=== PATIENT | male | born 1970 | race Caucasian/White ===

== ENCOUNTER 2022-02-14 14:25 | Outpatient (CLI) | payer OTHER, SELFPAY ==
--- NOTE | 2022-02-14 15:00 | CRLHL7_ITS ---
For Patients: As a result of the Century Cures Act, medical imaging exams and procedure reports are released immediately into your electronic medical record. You may view this report before your referring provider. If you have questions, please contact your health care provider. INDICATION: CIRRHOSIS OF LIVER COMPARISON: 06/09/2021 TECHNIQUE: Real time marcum scale imaging and color Doppler analysis was performed of the right upper quadrant. FINDINGS: The patient`s liver is enlarged and diffusely coarsened heterogeneous which has increased in conspicuity compared to the prior exam. There is a normal appearance of the hepatic IVC and proximal abdominal aorta. There is no evidence of ascites. The gallbladder is of normal size and there is no evidence of intraluminal stones or sludge. The gallbladder wall measures 5 mm in thickness. The common bile duct is of normal size and measures 3 mm in diameter at the level of the guilherme hepatis. The visualized pancreas appears mildly heterogeneous. There is no evidence of a stone or hydronephrosis within the right kidney. The right kidney measures 11.3 cm in length. IMPRESSION: Hepatomegaly with diffuse heterogeneity suggesting regenerating nodules. This has progressed since the prior study. Dynamic MRI is suggested for further evaluation. Chronic mild thickening of the gallbladder wall related to chronic liver disease. Dictated by Yossi Marin MD @ 02/14/2022 3:43:33 PM (Electronically Signed)
== END 2022-02-14 14:26 | disposition home or self-care (01) ==
LOC: US 14:25
PROVIDERS: PCP Family Medicine; Visit Provider Internal Medicine Gastroenterology
DX: K74.60 Unspecified cirrhosis of liver (principal); R16.0 Hepatomegaly, not elsewhere classified
CPT/HCPCS: 76705

== ENCOUNTER 2022-03-07 14:59 | Outpatient (CLI) | payer OTHER, SELFPAY ==
--- NOTE | 2022-03-07 15:30 | CRLHL7_ITS ---
For Patients: As a result of the Century Cures Act, medical imaging exams and procedure reports are released immediately into your electronic medical record. You may view this report before your referring provider. If you have questions, please contact your health care provider. Indication: Abnormal ultrasound findings. Comparison: Abdominal ultrasound 02/14/2022; CT abdomen and pelvis 12/16/2018; CT chest, abdomen, and pelvis 04/03/2021 Technique: MRI of the abdomen was performed with the following sequences: axial and coronal T2 weighted, axial T2 fat saturated, axial diffusion, axial T1 in and out of phase, axial and coronal 3D T1 weighted before and after intravenous contrast administration. Contrast: 15 mL Dotarem Findings: Liver: Hepatomegaly with marked severe diffuse steatosis. Liver demonstrates progressive nodularity, consistent with cirrhosis. Sub adequate arterial phase examination limits evaluation. No suspicious enhancing observations or washout. Portal hypertension with recanalized paraumbilical vein and splenomegaly. Gallbladder: Unremarkable. Biliary system: No biliary distention, filling defect, mass or stricture. Pancreas: Normal caliber main pancreatic duct.No discrete pancreatic lesions. Other abdominal organs: Left renal cortical cyst. Adrenal glands grossly unremarkable. Bone marrow signal: Normal Other findings: No lymphadenopathy or ascites Impression: 1. Cirrhotic liver morphology with marked severe diffuse steatosis. Portal hypertension with recanalized paraumbilical vein and splenomegaly. 2. No gross evidence of HCC. Dictated by Brando Munoz MD @ 03/11/2022 2:35:29 PM (Electronically Signed)
== END 2022-03-07 15:00 | disposition home or self-care (01) ==
LOC: MRI 15:00
PROVIDERS: PCP Family Medicine; Visit Provider Internal Medicine Gastroenterology
DX: R93.2 Abnormal findings on diagnostic imaging of liver and biliary tract (principal); K76.0 Fatty (change of) liver, not elsewhere classified
CPT/HCPCS: 74183; A9575

== ENCOUNTER 2022-09-05 17:35 | Outpatient (CLI) | payer MEDICAID, SELFPAY | END 2022-09-05 17:36 | disposition home or self-care (01) | LOC: AMB 09-06 12:47 | PROVIDERS: PCP Family Medicine; Visit Provider Family Medicine | DX: R06.09 Other forms of dyspnea (principal) | CPT/HCPCS: A0425; A0427 ==

== ENCOUNTER 2022-09-05 18:00 | Inpatient (IN) | payer MEDICAID, SELFPAY ==
[2022-09-05] VITALS (37 sets, daily range): BP systolic 98–174; BP diastolic 68–146; PULSE 107–163; RESP 22–30; TEMP 36.4–37.2; O2SAT 83–98; BMI 40.4; BMI 41.3
[2022-09-05] MEDS: 0.9 % SODIUM CHLORIDE 1000 ml 1,000 ML IV (18:21)
--- NOTE | 2022-09-05 18:26 | ED_ITS ---
HPI - General Adult General Time Seen by Provider: 18:26 Date Seen: 09/05/22 Chief complaint: Alcohol/Intoxication Stated complaint: Withdrawals Time Seen by Provider: 09/05/22 18:12 Source: patient Mode of arrival: EMS History of Present Illness HPI narrative: Rachid is a 52-year-old male past medical history includes alcohol abuse, complicated with alcohol withdrawals, asthma, hypertension, acute respiratory failure in the setting of pulmonary edema presents emergency department via EMS from home with alcohol withdrawals. Patient states that his last drink was last night around midnight or 1:00 a.m., he has been drinking 1 L of Tequila daily over the last 6 months, last time he saw his primary Dr. Colon was last July, patient denies any history of any withdrawal seizures, patient denies any nausea vomiting, he feels that his breathing has worsened over the last 6 months as well, he has also had increased abdominal distension with his ascites, patient does not smoke cigarettes, denies any orthopnea, he gets more exertional short of breath, he has had lower extremity edema. Denies any chest pain or cough, no fevers or chills, patient states that he has been eating, he has had ongoing diarrhea but denies any blood in the stool, no hemoptysis or hematemesis. Patient denies any pain at this time. Patient has been hospitalized for withdrawals in the past. No other drug use. Related Data Previous Rx's Medication Instructions Recorded folic acid 1 mg tablet 1 mg PO QDAY #90 tabs 05/30/22 furosemide 20 mg tablet 20 mg PO QDAY #90 tabs 05/30/22 magnesium oxide 400 mg (2 x 200 mg magnesium) PO 05/30/22 QDAY #90 tabs metoprolol succinate 100 mg 100 mg PO QDAY #90 ea 05/30/22 capsule sprinkle, ext. release 24 hr multivitamin 1 tab PO QDAY #90 tabs 05/30/22 omeprazole 40 mg capsule,delayed 40 mg PO QDAY #90 caps 05/30/22 release ferrous sulfate 325 mg (65 mg 325 mg PO QDAY #90 tabs 07/02/22 iron) tablet Allergies Allergy/AdvReac Type Severity Reaction Status Date / Time tree nut Allergy Severe Anaphylaxis Verified 08/23/21 12:13 ondansetron Allergy Unknown Hives Verified 08/23/21 12:13 Review of Systems Status of ROS: Reports: 10 or more systems reviewed and unremarkable except as noted in History and below PFSH [facility] Medical History GERD (gastroesophageal reflux disease) ?K21.9 - Gastro-esophageal reflux disease without esophagitis (ICD-10) Social History Narrative: alcohol abuse Smoking Status: Never smoker How often do you have a drink containing alcohol: 4 or more times a week How many standard drinks containing alcohol do you have on a typical day: 10 or more How often do you have six or more drinks on one occasion: Daily or almost daily AUDIT-C Alcohol total score: 12 Non-prescribed substance use: denies use service: No Exam Narrative: Exam Narrative: General: Nontoxic in appearance, disheveled HEENT: Pupils equal round reactive to light, extraocular muscles intact, Oropharynx clear and moist Neck; supple, full range of motion Lungs: Clear to auscultation bilaterally Heart: Sinus tachycardia Abdomen: Distended, fluid wave present, he is nontender to palpation all 4 quadrants Muscle skeletal: Continuous upper and lower extremity tremors, especially with movement + 2 pitting edema lower extremities bila terally : Neuro: Alert awake and oriented x3, unable to evaluate gait due to u nsteadiness Const: Vital Signs, click to edit/add: Vital Signs - 24 hr 09/05/22 18:10 09/05/22 18:23 09/05/22 18:30 Temperature 99.0 F Pulse Rate 121 H 128 H Pulse Rate [Right Pulse Oximeter] 117 H Respiratory Rate 22 Blood Pressure Blood Pressure [Ri ght Upper Arm] 146/110 H Pulse Oximetry 95 95 96 Oxygen Delivery Me thod Room Air 09/05/22 18:35 09/05/22 18:45 09/05/22 18:47 Temperature Pulse Rate 120 H 159 H 108 H Pulse Rate [Right Pulse Oximeter] Respiratory Rate Blood Pressure 102/68 Blood Pressure [Ri ght Upper Arm] Pulse Oximetry 96 93 83 L Oxygen Delivery Me thod 09/05/22 19:00 09/05/22 19:02 09/05/22 19:15 Temperature Pulse Rate 154 H 151 H 159 H Pulse Rate [Right Pulse Oximeter] Respiratory Rate Blood Pressure 166/129 H Blood Pressure [Ri ght Upper Arm] Pulse Oximetry 97 98 98 Oxygen Delivery Me thod 09/05/22 19:18 09/05/22 19:21 09/05/22 19:31 Temperature Pulse Rate 163 H 130 H Pulse Rate [Right Pulse Oximeter] Respiratory Rate Blood Pressure 127/78 Blood Pressure [Ri ght Upper Arm] Pulse Oximetry 98 89 Oxygen Delivery Me thod 09/05/22 19:33 09/05/22 19:39 09/05/22 19:44 Temperature Pulse Rate 128 H 155 H 116 H Pulse Rate [Right Pulse Oximeter] Respiratory Rate Blood Pressure 135/101 H 131/97 H 143/86 H Blood Pressure [Ri ght Upper Arm] Pulse Oximetry 87 L 95 95 Oxygen Delivery Me thod 09/05/22 19:45 09/05/22 19:48 09/05/22 20:00 Temperature Pulse Rate 116 H 115 H 128 H Pulse Rate [Right Pulse Oximeter] Respiratory Rate Blood Pressure 174/105 H Blood Pressure [Ri ght Upper Arm] Pulse Oximetry 97 97 96 Oxygen Delivery Me thod 09/05/22 20:02 09/05/22 20:18 09/05/22 20:19 Temperature Pulse Rate 107 H 143 H 135 H Pulse Rate [Right Pulse Oximeter] Respiratory Rate Blood Pressure 124/108 H 130/102 H Blood Pressure [Ri ght Upper Arm] Pulse Oximetry 95 97 96 Oxygen Delivery Me thod Course Course Hospital Course: 6:30 PM: AIDET performed, vitals show tachycardia, blood pressure stable, O2 sats greater than 95% on room air, workup will include IV peripheral, 0.9 normal saline bolus 500 cc due to history of pulmonary edema, 5 mg IV Valium, will obtain EKG, CBC, serum ETOH, NT proBNP, CMP, lipase, magnesium, urine drug screen and XR chest two views. CIWA score of 10. Will place O2, 2 L per nasal cannula for comfort. Differential diagnosis considered life-threatening of meningitis, bacteremia, subdural, CVA, subarachnoid hemorrhage, hypertensive encephalopathy, other considerations include medication side effects, hypoxic, ACS, pulmonary edema, sepsis, hypoglycemia hypocalcemia, hyper and hyponatremia, hepatic encephalopathy, alcohol withdrawals, substance abuse, seizures as well as the etiologies. Bedside EKG shows an atrial fibrillation with RVR, BP of 156, anterior infarct age undetermined, atrial fibrillation is new from previous, will also give Cardizem 10 mg IV for rate control. Reevaluation(s) Time of Reevaluation #1: 19:39 Reevaluation #1: No changes after the 10 mg IV bolus Cardizem, will repeat another [address] on Cardizem infusion. Blood pressure has been stable. CBC showed no leukocytosis but chronic anemia, metabolic panel showed chronically elevated LFTs, electrolytes within normal limits, NT proBNP within normal limits, ammonia level still pending, lipase elevated at 924, however patient denies any abdominal pain, magnesium mildly low at 1.3 plan to supplement, serum ETOH less than 0.01. Imaging showed showed low lung volumes with bibasilar patchy consolidations representing atelectasis, aspiration or pneumonia. Will add blood cultures, to hold on antibiotics at this time. Time of Reevaluation #2: 20:10 Reevaluation #2: Call made to hospitalist Dr. Loida DOBBS, he accepts care of the patient to a CCU bed, patient was in agreement. All questions answered. Vital Signs Vital signs: Initial Vital Signs Temperature 99.0 F 09/05/22 18:10 Temperature Source Temporal Artery Scan 09/05/22 18:10 Pulse Rate 117 H 09/05/22 18:10 Pulse Rhythm Regular 09/05/22 18:10 Respiratory Rate 09/05/22 18:10 Blood Pressure 146/110 H 09/05/22 18:10 Blood Pressure Mean 122 H 09/05/22 18:10 Blood Pressure Position Supine 09/05/22 18:10 Pulse Oximetry 95 09/05/22 18:10 Oxygen Delivery Method Room Air 09/05/22 18:10 Vital Signs Temperature 99.0 F 09/05/22 18:10 Pulse Rate 117 H 09/05/22 18:10 Respiratory Rate 22 09/05/22 18:10 Blood Pressure 146/110 H 09/05/22 18:10 Pulse Oximetry 95 09/05/22 18:10 Oxygen Delivery Method Room Air 09/05/22 18:10 Temperature 99.0 F 09/05/22 18:10 Pulse Rate 135 H 09/05/22 20:19 Respiratory Rate 22 09/05/22 18:10 Blood Pressure 130/102 H 09/05/22 20:19 Pulse Oximetry 96 09/05/22 20:19 Oxygen Delivery Method Room Air 09/05/22 18:10 Medical Decision Making Lab Data Labs: Lab Results 09/05/22 09/05/22 Range/Units 18:35 18:35 WBC 7.60 (4.50-11.00) K/uL RBC 3.48 L (4.30-5.90) m/uL Hgb 12.2 L (13.5-17.5) gm/dL Hct 37.7 (37.0-53.0) % MCV 108 H (80-100) fL MCH 35 H (26-34) pg MCHC 32 (32-36) gm/dL RDW Coeff of Sami 17.8 H (11.5-15.5) % Plt Count 137 L (140-440) K/uL Neut % (Auto) 75.4 H (42.0-72.0) % Lymph % (Auto) 7.2 L (20-44) % Stanton % (Auto) 15.8 H (0.0-11.0) % Eos % (Auto) 0.4 (0.0-7.0) % Baso % (Auto) 0.7 (0.0-3.0) % Neut # (Auto) 5.70 (1.7-7.0) K/uL Lymph # (Auto) 0.50 L (0.90-2.90) K/uL Stanton # (Auto) 1.20 H (0.00-0.90) K/UL Eos # (Auto) 0.03 (0.00-0.50) K/uL Baso # (Auto) 0.05 (0.00-0.30) K/uL Abs Immat Gran (auto) 0.04 (0.00-0.30) K/uL Imm/Tot Granulo (auto) 0.5 % Sodium 139 (135-149) mmol/L Potassium 4.0 (3.6-5.1) mmol/L Chloride 103 (96-114) mmol/L Carbon Dioxide 23 (20-32) mmol/L BUN 17 (7-30) mg/dL Creatinine 0.9 (0.5-1.5) mg/dL Estimated Creat Clear 104.58 Estimated GFR 104 ml/min Glucose 155 H (60-115) mg/dL Calcium 8.4 (8.4-10.6) mg/dL Magnesium 1.3 L (1.5-2.6) mg/dL Total Bilirubin 5.6 H (0.1-1.5) mg/dL AST 145 H (12-35) U/L ALT 69 H (4-50) U/L Alkaline Phosphatase 286 H (40-150) U/L NT-Pro-B Natriuret Pep 1790 pg/mL Total Protein 7.7 (6.0-8.3) g/dL Albumin 4.0 (3.3-5.0) g/dL Lipase 924 H (23-300) U/L Ethyl Alcohol < 0.01 L Cancelled (0.01-0.03) % Critical Care Time Critical Care Time Total Critical Care Time in Minutes: 45 Discharge Plan Discharge Clinical Impression: Alcohol withdrawal syndrome, Atrial fibrillation with rapid ventricular response Patient Disposition: Admitted As Inpatient Condition: Improved
--- NOTE | 2022-09-05 18:41 | CRLHL7_ITS ---
For Patients: As a result of the Cures Act, medical imaging exams and procedure reports are released immediately into your electronic medical record. You may view this report before your referring provider. If you have questions, please contact your health care provider. Indication: History pulmonary edema, ascites, alcoholism Technique: AP view of the chest Comparison: Chest radiograph on April 03, 2021 and prior Findings: Lung volumes are low with bibasilar patchy consolidations. No pleural effusion or pneumothorax. Heart and mediastinum are stable. No acute fracture. Visualized upper abdomen is unremarkable. Impression: Lung volumes are low with bibasilar patchy consolidations which may represent atelectasis, aspiration and/or pneumonia. Dictated by Rosaura Wills MD @ 09/05/2022 8:16:12 PM (Electronically Signed)
[2022-09-05] MEDS: diazePAM 5 MG/ML inj IV ×2 (18:43→19:50)
[2022-09-05 18:49] LABS: Basophils Absolute Auto 0.05 K/uL (0.00-0.30); Basophils Percent Auto 0.7 % (0.0-3.0); Eosinophils Absolute Auto 0.03 K/uL (0.00-0.50); Eosinophils Percent Auto 0.4 % (0.0-7.0); Hematocrit 37.7 % (37.0-53.0); Hemoglobin* 12.2 gm/dL (13.5-17.5); Immature Granulocytes Abs Auto 0.04 K/uL (0.00-0.30); Immature Granulocytes Pct Auto 0.5 %; Lymphocytes Percent Auto 7.2 % (20-44); Mean Corpuscular HGB Conc 32 gm/dL (32-36); Mean Corpuscular Hemoglobin 35 pg (26-34); Mean Corpuscular Volume 108 fL (80-100); Monocytes Percent Auto 15.8 % (0.0-11.0); Neutrophils Percent Auto 75.4 % (42.0-72.0); Platelet Count* 137 K/uL (140-440); RDW Coefficient of Variation % 17.8 % (11.5-15.5); Red Blood Count 3.48 m/uL (4.30-5.90)
--- NOTE | 2022-09-05 18:49 | ED.NURSE ---
Applied oxygen per patient request for comfort.
[2022-09-05 19:02] LABS: Slide Review Reflex No
[2022-09-05 19:12] LABS: Chloride* 103 mmol/L (96-114); Sodium* 139 mmol/L (135-149)
[2022-09-05 19:14] LABS: Creatinine* 0.9 mg/dL (0.5-1.5); Est. Creatinine Clearance* 104.58; Estimated Glomerular Filt Rate 104 ml/min
[2022-09-05 19:15] LABS: Alanine Aminotransferase* 69 U/L (4-50); Alkaline Phosphatase* 286 U/L (40-150); Aspartate Amino Transferase* 145 U/L (12-35); Blood Urea Nitrogen* 17 mg/dL (7-30); Calcium* 8.4 mg/dL (8.4-10.6); Carbon Dioxide* 23 mmol/L (20-32); Glucose* 155 mg/dL (60-115); Lipase* 924 U/L (23-300); Total Protein* 7.7 g/dL (6.0-8.3)
[2022-09-05 19:16] LABS: Magnesium* 1.3 mg/dL (1.5-2.6)
--- NOTE | 2022-09-05 19:20 | ED.NURSE ---
IV fluids stopped at 19:10 after about 500 cc infused after review of medical record showed recent hospitalization for pulmonary edema.
[2022-09-05] MEDS: dilTIAZem 5 MG/ML inj 10 MG IVP ×2 (19:35→19:42)
[2022-09-05 19:40] LABS: Ethanol* < 0.01 % (0.01-0.03); NT Pro B Type NatriureticPept* 1790 pg/mL
[2022-09-05] MEDS: dilTIAZem HCL 125 MG in 0.9 % SODIUM CHLORIDE 100 ml 100 ML 10 MG IVPB (20:01)
--- NOTE | 2022-09-05 20:24 | PC.NURSE ---
Dr Juarez at
--- NOTE | 2022-09-05 21:32 | PM.IMHP1 ---
Hospitalist- H&P: HPI History of Present Illness Time Seen by Provider: 22:30 Date Seen: 09/05/22 Chief complaint: Withdrawals Narrative: Rachid Mccracken is a 52 year old man with history of alcoholism was sober for the past year or so and then relapsed about 6 months ago and has been drinking upwards of 1 L of Tequila a day plus beer. He tells me that he resolved to stop drinking again. Last drink around 1:00 a.m. today. Starting having alcohol withdrawal with increasing tremor and diaphoresis and thus decided to come in to the emergency department for further assessment. Denies fevers, rigors, diaphoresis. Denies nausea or vomiting. Denies chest heaviness, pressure, tightness, or pain. Denies palpitations or chest fluttering. Denies dyspnea at rest, paroxysmal nocturnal dyspnea, orthopnea. Acknowledges long-standing dyspnea with exertion. Denies cough. Denies rash or wound. Denies dysuria, urgency, frequency, hematuria. Denies headache or focal motor neurologic deficit. Has had decreased oral intake over the last day or so. Acknowledges increasing abdominal distention. Acknowledges increasing dependent edema. Has had diarrhea for some time. Denies hematochezia, melena, hematemesis. Denies blood loss of any sort. In our emergency department was found to be in atrial fibrillation with rapid ventricular response, with heart rate 120-130. He is unaware of how long he has been in this heart rhythm. To the best of his knowledge ease never been told he has been in this heart rhythm before. Review of Systems Status of ROS: Reports: 10 or more systems reviewed and unremarkable except as noted in History and below Narrative: Lives in an apartment [place] a restaurant. 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 Lives in [place]. His mother also lives in [place]. Lives alone. In no relationship with anyone. Not previously been . Does not have any children. Designates mother as his power of gastroenterology professor for health should that be required. Requests full resuscitation in the event of cardiopulmonary demise. Acknowledges a sense of depression at times such that he stays home and drinks alcohol. He realizes that this does not help with his depression. He wonders if this might make his depression worse. Historically has been on trazodone, he does not know the dose, but he stopped it for reasons that he is not remembering. Has not been on any other medications to help with depression or anxiety. Has never had a formal sleep study assessment. [facility] Medical History (Updated 09/05/22 @ 21:54 by Adan Mariscal MD) Obesity ?E66.9 - Obesity, unspecified (ICD-10) Chronic alcoholism ?F10.20 - Alcohol dependence, uncomplicated (ICD-10) Pulmonary edema (12/04/20) ?J81.1 - Chronic pulmonary edema (ICD-10) Pneumonia (12/04/20) ?J18.9 - Pneumonia, unspecified organism (ICD-10) Low magnesium level ?R79.0 - Abnormal level of blood mineral (ICD-10) Iron deficiency ?E61.1 - Iron deficiency (ICD-10) Hypertension ?I10 - Essential (primary) hypertension (ICD-10) Generalized anxiety disorder ?F41.1 - Generalized anxiety disorder (ICD-10) Coagulation disorder ?D68.9 - Coagulation defect, unspecified (ICD-10) Asthma ?J45.909 - Unspecified asthma, uncomplicated (ICD-10) Anemia due to acute blood loss ?D62 - Acute posthemorrhagic anemia (ICD-10) Alcoholism ?F10.20 - Alcohol dependence, uncomplicated (ICD-10) GERD (gastroesophageal reflux disease) ?K21.9 - Gastro-esophageal reflux disease without esophagitis (ICD-10) Social History Narrative: alcohol abuse Smoking Status: Never smoker How often do you have a drink containing alcohol: 4 or more times a week How many standard drinks containing alcohol do you have on a typical day: 10 or more How often do you have six or more drinks on one occasion: Daily or almost daily AUDIT-C Alcohol total score: 12 Non-prescribed substance use: denies use service: No Meds Home Medications and Allergies Home Medication Comments: 1. Folic acid 1 mg daily 2. Furosemide 20 mg daily 3. Magnesium oxide 400 mg daily 4. Metoprolol succinate 100 mg daily 5. Multivitamin 1 tab daily 6. Omeprazole 20 mg daily 7. Aspirin 81 mg once daily Allergies Allergy/AdvReac Type Severity Reaction Status Date / Time tree nut Allergy Severe Anaphylaxis Verified 08/23/21 12:13 ondansetron Allergy Unknown Hives Verified 08/23/21 12:13 Exam Narrative: Exam Narrative: I examine him in the emergency department as he is laying in a semi recumbent position on the exam table head of bed elevated about 45?. He appears diaphoretic with resting tremors. Tremors accentuated with movement and effort. Vision and hearing are grossly normal. No icterus or conjunctival injection. Pupils equally round react to light and accommodation. Extraocular muscles intact. External auditory canals and tympanic membranes are normal bilaterally. Midline nasal septum. Dry buccal mucosa. Dentition in good repair. Mallampati class 4 airway. Neck is full. Midline trachea. Neck is supple. No obvious JVD or hepatojugular reflux. No carotid bruits. No adenopathy in the head and neck region. Lungs are clear to auscultation without wheezing, rhonchi, or rales. Chest wall excursions are full. Barrel shaped chest. Tachypneic with respiratory rate of 24 at rest. No CVA tenderness. No tenderness to percussion over the spine. Heart tones tachycardic with irregular rhythm. Distant tones. Normal S1-S2. Abdomen is obese. Distended. Soft. Nontender. Extremities with edema bilaterally in lower extremities left greater than right. Has a hue of ecchymosis on the medial aspect of the left malleolus. No tenderness. Range of motion is intact. Edema in the pretibial area and up to his thighs. No presacral edema. Skin without jaundice, petechiae, or cyanosis. No rashes. No wounds. Needs assist of 1 to transfers from semi recumbent position to sitting upright. Has markedly accentuated tremors with this effort. Const: Vital Signs, click to edit/add: Vital Signs - 24 hr 09/05/22 18:10 09/05/22 18:23 09/05/22 18:30 Temperature 99.0 F Pulse Rate 121 H 128 H Pulse Rate [Right Pulse Oximeter] 117 H Respiratory Rate 22 Blood Pressure Blood Pressure [Ri ght Upper Arm] 146/110 H Pulse Oximetry 95 95 96 Oxygen Delivery Me thod Room Air 09/05/22 18:35 09/05/22 18:45 09/05/22 18:47 Temperature Pulse Rate 120 H 159 H 108 H Pulse Rate [Right Pulse Oximeter] Respiratory Rate Blood Pressure 102/68 Blood Pressure [Ri ght Upper Arm] Pulse Oximetry 96 93 83 L Oxygen Delivery Me thod 09/05/22 19:00 09/05/22 19:02 09/05/22 19:15 Temperature Pulse Rate 154 H 151 H 159 H Pulse Rate [Right Pulse Oximeter] Respiratory Rate Blood Pressure 166/129 H Blood Pressure [Ri ght Upper Arm] Pulse Oximetry 97 98 98 Oxygen Delivery Me thod 09/05/22 19:18 09/05/22 19:21 09/05/22 19:31 Temperature Pulse Rate 163 H 130 H Pulse Rate [Right Pulse Oximeter] Respiratory Rate Blood Pressure 127/78 Blood Pressure [Ri ght Upper Arm] Pulse Oximetry 98 89 Oxygen Delivery Me thod 09/05/22 19:33 09/05/22 19:39 09/05/22 19:44 Temperature Pulse Rate 128 H 155 H 116 H Pulse Rate [Right Pulse Oximeter] Respiratory Rate Blood Pressure 135/101 H 131/97 H 143/86 H Blood Pressure [Ri ght Upper Arm] Pulse Oximetry 87 L 95 95 Oxygen Delivery Me thod 09/05/22 19:45 09/05/22 19:48 09/05/22 20:00 Temperature Pulse Rate 116 H 115 H 128 H Pulse Rate [Right Pulse Oximeter] Respiratory Rate Blood Pressure 174/105 H Blood Pressure [Ri ght Upper Arm] Pulse Oximetry 97 97 96 Oxygen Delivery Me thod 09/05/22 20:02 09/05/22 20:18 09/05/22 20:19 Temperature Pulse Rate 107 H 143 H 135 H Pulse Rate [Right Pulse Oximeter] Respiratory Rate Blood Pressure 124/108 H 130/102 H Blood Pressure [Ri ght Upper Arm] Pulse Oximetry 95 97 96 Oxygen Delivery Me thod 09/05/22 20:20 09/05/22 20:26 09/05/22 20:30 Temperature 97.6 F Pulse Rate 139 H 126 H Pulse Rate [Right Pulse Oximeter] Respiratory Rate Blood Pressure Blood Pressure [Ri ght Upper Arm] Pulse Oximetry 95 95 Oxygen Delivery Me thod 09/05/22 20:32 09/05/22 20:45 09/05/22 20:47 Temperature Pulse Rate 123 H 133 H 147 H Pulse Rate [Right Pulse Oximeter] Respiratory Rate Blood Pressure 110/73 127/102 H Blood Pressure [Ri ght Upper Arm] Pulse Oximetry 94 95 95 Oxygen Delivery Me thod Documenting provider has reviewed patient's vital signs: yes Hospitalist - H&P: Result Labs Labs: Short CBC 09/05/22 Range/Units 18:35 WBC 7.60 (4.50-11.00) K/uL Hgb 12.2 L (13.5-17.5) gm/dL Hct 37.7 (37.0-53.0) % Plt Count 137 L (140-440) K/uL BMP 09/05/22 18:35 Sodium 139 Potassium 4.0 Chloride 103 Carbon Dioxide 23 BUN 17 Creatinine 0.9 Glucose 155 H Calcium 8.4 Liver Function 09/05/22 Range/Units 18:35 Total Bilirubin 5.6 H (0.1-1.5) mg/dL AST 145 H (12-35) U/L ALT 69 H (4-50) U/L Alkaline Phosphatase 286 H (40-150) U/L Albumin 4.0 (3.3-5.0) g/dL ECG ECG interpretation date: 09/05/22 ECG interpretation time: 22:30 Prior ECG tracings: not available for review Interpretation: AFib RVR without ischemic changes Imaging Chest x-ray: Attestation: I have reviewed the pertinent imaging results. Radiologist's impression: Enlarged cardiac silhouette. Bibasilar atelectatic changes. Assessment and Plan Assessment and plan (1) Alcohol withdrawal syndrome: Status: Acute (2) Chronic alcoholism: Status: Acute (3) Atrial fibrillation with rapid ventricular response: Status: Acute (4) Alcoholic liver disease: Status: Acute (5) Alcoholic hepatitis: Status: Acute (6) Suspected sleep apnea: Status: Acute (7) Obesity: Problem comment: BMI 40 Status: Acute Plan 1. Reviewed impression with patient 2. Admit to our unit and start a diltiazem drip. 3. Continue with oral metoprolol succinate. 4. Add metoprolol tartrate IV q.6 hours p.r.n. for heart rate greater than 100 and systolic blood pressure greater than 100 mmHg for more than 10 minutes. 5. Telemetry and repeat electrocardiogram. 6. Transthoracic echocardiogram 7. Alcohol withdrawal CIWA driven protocol, lorazepam. 8. Empirically start him on gabapentin to lower seizure threshold. 9. Single dose of phenobarbital [address] scan of abdomen and pelvis without contrast. 11. In time will need outpatient sleep study to assess for obstructive sleep apnea. Meanwhile in hospital will ask respiratory therapy to assess whether not he might be a candidate for us to do an inpatient overnight sleep assessment. 12. Physical therapy and occupational therapy consultation 13. director client services to assist with assessment and recommendations regarding alcoholism and treatment in the outpatient setting versus inpatient setting. 14. Dietitian will assess and recommend regarding diet. 15. Continue to follow labs. Will need to add a direct bilirubin. 16. Answered patient's questions to satisfaction. 17. Continue with some of his other supportive medications. Consider adding an SSRI for him. 18. He is agreeable with above stated plans and recommendations.
--- NOTE | 2022-09-05 21:34 | CRLHL7_ITS ---
For Patients: As a result of the Century Cures Act, medical imaging exams and procedure reports are released immediately into your electronic medical record. You may view this report before your referring provider. If you have questions, please contact your health care provider. INDICATION: Alcoholic liver disease. Increased abdominal girth. COMPARISON: MR of the abdomen from 03/17/2022. CT of the abdomen and pelvis from 04/03/2021. TECHNIQUE: CT examination of the abdomen and pelvis was performed without contrast enhancement using 3 mm thick axial sections from the lung bases through the pubic symphysis. Oral contrast was not administered. Please note that all CT scans at this facility use dose modulation, iterative reconstruction, and/or weight-based dosing when appropriate to reduce radiation dose to as low as reasonably achievable. FINDINGS: There is continues to be mild ascites, with fluid along the right lobe of the liver, in the left pericolic gutter, and in the superior pelvis. In the abdomen, the liver is again seen to be replaced by multiple hypodense nodules, unchanged in appearance compared to the MR of the abdomen from 2022 but new compared to the previous CT from 2021. The liver remains normal in size, measuring 22.5 centimeters in length. The nodules are consistent with cirrhosis, but multiple metastatic lesions cannot be entirely excluded. The spleen is increased in size and is now moderately enlarged, measuring 15.6 centimeters in length, previously 13.9 centimeters. There continues to be recanalization of the umbilical vein. No definite gastric or esophageal varices are evident. The pancreas and adrenals are normal in appearance. The unenhanced kidneys are normal in appearance. The gallbladder is normal in appearance. The abdominal aorta is normal in caliber with no sign of dilatation. There is no sign of retroperitoneal mass or adenopathy. The stomach, loops of small bowel, and colon in the abdomen are normal in appearance. There is a small fat containing periumbilical hernia. Hernia In the pelvis, the appendix is nonvisualized, but there is no sign of an inflammatory process in the area of the appendix. The loops of small bowel, colon, and rectum in the pelvis are normal in appearance. The prostate is normal in appearance. The urinary bladder is normal in appearance. There is no sign of pelvic or inguinal mass or adenopathy. There is no sign of free air in the abdomen or pelvis. There is a small calcified granuloma in the anterior medial right lower lobe. The lung bases are otherwise clear. The osseous structures are normal in appearance for the patient`s age. IMPRESSION: Stable mild ascites. CT of the abdomen shows stable diffuse nodularity of the normal-sized liver consistent with cirrhosis. Increased splenomegaly, now moderate. Again seen is recanalization of the umbilical vein. CT of the pelvis shows no additional abnormality. Please note that all CT scans at this facility use dose modulation, iterative reconstruction, and/or weight-based dosing when appropriate to reduce radiation dose to as low as reasonably achievable. Dictated by Marc Hardy MD @ 09/05/2022 11:00:52 PM (Electronically Signed)
[2022-09-05] MEDS: LORazepam 2 MG/ML inj IVP ×2 (22:15→23:09)
[2022-09-05 22:19] LABS: Bilirubin Direct* 3.6 mg/dL (0.0-0.5)
[2022-09-05 22:35] LABS: Bilirubin Total* 5.3 mg/dL (0.1-1.5)
[2022-09-05] MEDS: METOPROLOL TARTRATE 1 MG/ML inj 5 MG IVP (22:47)
[2022-09-05] MEDS: PHENobarbitaL 260 MG in 0.9 % SODIUM CHLORIDE 100 ml 100 ML 208 MG IVPB (22:49)
[2022-09-05] MEDS: MAGNESIUM OXIDE 400 MG TABLET PO (23:10)
[2022-09-05] MEDS: ENOXAPARIN 120 MG/0.8 ML INJ SUBCUT (23:10)
[2022-09-05] MEDS: dilTIAZem HCL 125 MG in 0.9 % SODIUM CHLORIDE 100 ml 100 ML 15 MG IVPB (23:18)
[2022-09-05 23:19] LABS: Appearance Urine Clear (Clear); Bilirubin Urine 3+ (Negative); Blood Urine 2+ (Negative); Color Urine Orange (Yellow); Glucose Urine Negative (Negative); Ketones Urine 1+ (Negative); Leukocyte Esterase Urine Negative (Negative); Nitrite Urine Positive (Negative); Protein Urine 3+ (Negative); Specific Gravity Urine 1.025 (1.000-1.030); Urobilinogen Urine >=8.0 (0.2-1.0)
[2022-09-05 23:25] LABS: Amphetamine Screen Urine Negative (Negative); Barbiturate Screen Urine Negative (Negative); Cocaine Screen Urine Negative (Negative); Methadone Screen Urine Negative (Negative); Methamphetamines Screen Urine Negative (Negative); Opiate Screen Urine Negative (Negative); Oxycodone Screen Urine Negative (Negative); Phencyclidine Screen Urine Negative (Negative); Tricyclic Antidepressant Urine Negative (Negative)
[2022-09-05 23:29] LABS: Benzodiazepines Screen Urine POSITIVE (Negative); Cannabinoid Screen Urine POSITIVE (Negative)
[2022-09-05] MEDS: GABAPENTIN 300 MG CAPSULE PO (23:45)
[2022-09-05] MEDS: METOPROLOL SUCCINATE (XL) 100 MG TAB PO (23:46)
[2022-09-06] VITALS (20 sets, daily range): BP systolic 93–195; BP diastolic 63–142; PULSE 110–136; RESP 20–30; TEMP 36.4–36.9; O2SAT 82–95
[2022-09-06 00:04] LABS: Bacteria Urine Few; WBC Urine 0-2 (0-5)
[2022-09-06] MEDS: LORazepam 2 MG/ML inj IVP ×5 (00:23→05:20)
[2022-09-06] MEDS: SODIUM CHLORIDE 0.9 % (FLUSH) 10 ML SYRINGE 5 ML IVF ×5 (00:23→05:20)
[2022-09-06] MEDS: METOPROLOL TARTRATE 1 MG/ML inj 5 MG IVP (03:22)
--- NOTE | 2022-09-06 04:04 | W.PM.CROSSCO ---
Objective Objective Data Details: Received a call that pt is agitated. Pt did well previously with phenobarbitol which we repeated. I am hopeful that his pulse will improve with that as well as pt is on a diltiazem drip for atrial fibrillation with RVR.
[2022-09-06] MEDS: PHENobarbitaL 260 MG in 0.9 % SODIUM CHLORIDE 100 ml 100 ML 208 MG IVPB (04:43)
--- NOTE | 2022-09-06 06:03 | P.IMPN_ITS ---
Progress Note: A&P Assessment and plan (1) Acute hypercapnic respiratory failure: Status: Acute Plan Notified by nursing of worsening respiratory status and continued tachycardia. Patient is noted to be edematous, and recently had issue with pulmonary edema. Currently on 15L oxy mask, will transition to BiPAP/CPAP. Also ordered 40 mg IV lasix x1. Expect some tachycardia with withdrawal and hypoxia. Already on diltiazem drip and metoprolol q6h, HR 110s-120s, so will hold off on additional rate lowering meds. Currently patient is resting somewhat, which is a change from earlier with agitation and hallucination. Will continue to follow along and adjust plan of care as needed. Subjective Date Seen: 09/06/22 Exam Const: Vital Signs, click to edit/add: Vital Signs - 24 hr 09/05/22 18:10 09/05/22 18:23 09/05/22 18:30 Temperature 99.0 F Pulse Rate 121 H 128 H Pulse Rate [Pulse Oximeter] Pulse Rate [Right Pulse Oximeter] 117 H Respiratory Rate 22 Blood Pressure Blood Pressure [Le ft Arm] Blood Pressure [Ri ght Upper Arm] 146/110 H Pulse Oximetry 95 95 96 Oxygen Delivery Me thod Room Air Oxygen Flow Rate 09/05/22 18:35 09/05/22 18:45 09/05/22 18:47 Temperature Pulse Rate 120 H 159 H 108 H Pulse Rate [Pulse Oximeter] Pulse Rate [Right Pulse Oximeter] Respiratory Rate Blood Pressure 102/68 Blood Pressure [Le ft Arm] Blood Pressure [Ri ght Upper Arm] Pulse Oximetry 96 93 83 L Oxygen Delivery Me thod Oxygen Flow Rate 09/05/22 19:00 09/05/22 19:02 09/05/22 19:15 Temperature Pulse Rate 154 H 151 H 159 H Pulse Rate [Pulse Oximeter] Pulse Rate [Right Pulse Oximeter] Respiratory Rate Blood Pressure 166/129 H Blood Pressure [Le ft Arm] Blood Pressure [Ri ght Upper Arm] Pulse Oximetry 97 98 98 Oxygen Delivery Me thod Oxygen Flow Rate 09/05/22 19:18 09/05/22 19:21 09/05/22 19:31 Temperature Pulse Rate 163 H 130 H Pulse Rate [Pulse Oximeter] Pulse Rate [Right Pulse Oximeter] Respiratory Rate Blood Pressure 127/78 Blood Pressure [Le ft Arm] Blood Pressure [Ri ght Upper Arm] Pulse Oximetry 98 89 Oxygen Delivery Me thod Oxygen Flow Rate 09/05/22 19:33 09/05/22 19:39 09/05/22 19:44 Temperature Pulse Rate 128 H 155 H 116 H Pulse Rate [Pulse Oximeter] Pulse Rate [Right Pulse Oximeter] Respiratory Rate Blood Pressure 135/101 H 131/97 H 143/86 H Blood Pressure [Le ft Arm] Blood Pressure [Ri ght Upper Arm] Pulse Oximetry 87 L 95 95 Oxygen Delivery Me thod Oxygen Flow Rate 09/05/22 19:45 09/05/22 19:48 09/05/22 20:00 Temperature Pulse Rate 116 H 115 H 128 H Pulse Rate [Pulse Oximeter] Pulse Rate [Right Pulse Oximeter] Respiratory Rate Blood Pressure 174/105 H Blood Pressure [Le ft Arm] Blood Pressure [Ri ght Upper Arm] Pulse Oximetry 97 97 96 Oxygen Delivery Me thod Oxygen Flow Rate 09/05/22 20:02 09/05/22 20:18 09/05/22 20:19 Temperature Pulse Rate 107 H 143 H 135 H Pulse Rate [Pulse Oximeter] Pulse Rate [Right Pulse Oximeter] Respiratory Rate Blood Pressure 124/108 H 130/102 H Blood Pressure [Le ft Arm] Blood Pressure [Ri ght Upper Arm] Pulse Oximetry 95 97 96 Oxygen Delivery Me thod Oxygen Flow Rate 09/05/22 20:20 09/05/22 20:26 09/05/22 20:30 Temperature 97.6 F Pulse Rate 139 H 126 H Pulse Rate [Pulse Oximeter] Pulse Rate [Right Pulse Oximeter] Respiratory Rate Blood Pressure Blood Pressure [Le ft Arm] Blood Pressure [Ri ght Upper Arm] Pulse Oximetry 95 95 Oxygen Delivery Me thod Oxygen Flow Rate 09/05/22 20:32 09/05/22 20:45 09/05/22 20:47 Temperature Pulse Rate 123 H 133 H 147 H Pulse Rate [Pulse Oximeter] Pulse Rate [Right Pulse Oximeter] Respiratory Rate Blood Pressure 110/73 127/102 H Blood Pressure [Le ft Arm] Blood Pressure [Ri ght Upper Arm] Pulse Oximetry 94 95 95 Oxygen Delivery Me thod Oxygen Flow Rate 09/05/22 21:20 09/05/22 21:20 09/05/22 21:20 Temperature 98.4 F 98.4 F Pulse Rate Pulse Rate [Pulse Oximeter] 134 H 134 H Pulse Rate [Right Pulse Oximeter] Respiratory Rate 28 H 28 H 28 H Blood Pressure Blood Pressure [Le ft Arm] 138/112 H 138/112 H Blood Pressure [Ri ght Upper Arm] Pulse Oximetry 96 96 96 Oxygen Delivery Me thod Room Air Room Air Room Air Oxygen Flow Rate 09/05/22 21:21 09/05/22 22:10 09/05/22 22:30 Temperature Pulse Rate 138 H Pulse Rate [Pulse Oximeter] 122 H 131 H Pulse Rate [Right Pulse Oximeter] Respiratory Rate 28 H 28 H Blood Pressure Blood Pressure [Le ft Arm] 124/85 160/146 H Blood Pressure [Ri ght Upper Arm] Pulse Oximetry 94 96 Oxygen Delivery Me thod Room Air Room Air Oxygen Flow Rate 09/05/22 22:40 09/05/22 22:45 09/05/22 23:00 Temperature Pulse Rate Pulse Rate [Pulse Oximeter] 118 H 119 H Pulse Rate [Right Pulse Oximeter] Respiratory Rate 28 H 30 H Blood Pressure Blood Pressure [Le ft Arm] 98/68 144/101 H Blood Pressure [Ri ght Upper Arm] Pulse Oximetry 96 Oxygen Delivery Me thod Room Air Oxygen Flow Rate 09/05/22 23:00 09/05/22 23:15 09/05/22 23:30 Temperature Pulse Rate Pulse Rate [Pulse Oximeter] 136 H 131 H Pulse Rate [Right Pulse Oximeter] Respiratory Rate 30 H 30 H Blood Pressure Blood Pressure [Le ft Arm] 119/89 Blood Pressure [Ri ght Upper Arm] Pulse Oximetry 94 93 94 Oxygen Delivery Me thod Room Air Room Air Room Air Oxygen Flow Rate 09/05/22 23:45 09/06/22 00:00 09/06/22 00:15 Temperature Pulse Rate Pulse Rate [Pulse Oximeter] 129 H 116 H 118 H Pulse Rate [Right Pulse Oximeter] Respiratory Rate 28 H 28 H 28 H Blood Pressure Blood Pressure [Le ft Arm] 119/103 H 130/108 H 93/66 Blood Pressure [Ri ght Upper Arm] Pulse Oximetry 92 91 93 Oxygen Delivery Me thod Room Air Room Air Room Air Oxygen Flow Rate 09/06/22 00:19 09/06/22 00:30 09/06/22 00:45 Temperature 98.4 F Pulse Rate Pulse Rate [Pulse Oximeter] 118 H 128 H 113 H Pulse Rate [Right Pulse Oximeter] Respiratory Rate 28 H 28 H 28 H Blood Pressure Blood Pressure [Le ft Arm] 93/66 100/88 117/95 H Blood Pressure [Ri ght Upper Arm] Pulse Oximetry 93 92 91 Oxygen Delivery Me thod Room Air Room Air Room Air Oxygen Flow Rate 09/06/22 01:00 09/06/22 01:00 09/06/22 01:15 Temperature 98.2 F 98.2 F Pulse Rate Pulse Rate [Pulse Oximeter] 122 H 122 H 124 H Pulse Rate [Right Pulse Oximeter] Respiratory Rate 26 H 26 H 26 H Blood Pressure Blood Pressure [Le ft Arm] 128/81 128/81 110/81 Blood Pressure [Ri ght Upper Arm] Pulse Oximetry 92 92 93 Oxygen Delivery Me thod Room Air Room Air Room Air Oxygen Flow Rate 09/06/22 01:30 09/06/22 02:00 09/06/22 02:15 Temperature 98.2 F Pulse Rate Pulse Rate [Pulse Oximeter] 133 H 122 H 131 H Pulse Rate [Right Pulse Oximeter] Respiratory Rate 26 H 26 H 30 H Blood Pressure Blood Pressure [Le ft Arm] 117/85 123/79 121/63 Blood Pressure [Ri ght Upper Arm] Pulse Oximetry 92 94 92 Oxygen Delivery Me thod Room Air Room Air Room Air Oxygen Flow Rate 09/06/22 02:30 09/06/22 02:45 09/06/22 03:11 Temperature Pulse Rate Pulse Rate [Pulse Oximeter] 120 H 129 H 123 H Pulse Rate [Right Pulse Oximeter] Respiratory Rate 28 H 30 H 28 H Blood Pressure Blood Pressure [Le ft Arm] 137/85 127/100 H 103/83 Blood Pressure [Ri ght Upper Arm] Pulse Oximetry 92 90 93 Oxygen Delivery Me thod Room Air Room Air Room Air Oxygen Flow Rate 09/06/22 04:30 09/06/22 05:00 09/06/22 05:30 Temperature Pulse Rate Pulse Rate [Pulse Oximeter] 136 H 136 H 129 H Pulse Rate [Right Pulse Oximeter] Respiratory Rate 30 H 30 H 30 H Blood Pressure Blood Pressure [Le ft Arm] 131/77 195/142 H 140/89 H Blood Pressure [Ri ght Upper Arm] Pulse Oximetry 88 88 82 L Oxygen Delivery Me thod Room Air Nasal Cannula OxyMask Oxygen Flow Rate 2 15 Labs Labs: Laboratory Results - last 24 hr 09/05/22 09/05/22 09/05/22 18:35 18:35 21:50 WBC 7.60 RBC 3.48 L Hgb 12.2 L Hct 37.7 MCV 108 H MCH 35 H MCHC 32 RDW Coeff of Sami 17.8 H Plt Count 137 L Neut % (Auto) 75.4 H Lymph % (Auto) 7.2 L [place] % (Auto) 15.8 H Eos % (Auto) 0.4 Baso % (Auto) 0.7 Neut # (Auto) 5.70 Lymph # (Auto) 0.50 L [place] # (Auto) 1.20 H Eos # (Auto) 0.03 Baso # (Auto) 0.05 Abs Immat Gran (auto) 0.04 Imm/Tot Granulo (auto) 0.5 Sodium 139 Potassium 4.0 Chloride 103 Carbon Dioxide 23 BUN 17 Creatinine 0.9 Estimated Creat Clear 104.58 Estimated GFR 104 Glucose 155 H Calcium 8.4 Magnesium 1.3 L Total Bilirubin 5.3 H Direct Bilirubin 3.6 H AST 145 H ALT 69 H Alkaline Phosphatase 286 H Ammonia 109.0 H NT-Pro-B Natriuret Pep 1790 Total Protein 7.7 Albumin 4.0 Lipase 924 H Urine Color Urine Appearance Urine pH Ur Specific [place] Urine Protein Urine Glucose (UA) Urine Ketones Urine Blood Urine Nitrite Urine Bilirubin Urine Urobilinogen Ur Leukocyte Esterase Urine RBC Urine WBC Ur Squamous Epith Cells Urine Bacteria Urine Opiates Screen Ur Oxycodone Screen Urine Methadone Screen Ur Propoxyphene Screen Ur Barbiturates Screen U Tricyclic Antidepress Ur Phencyclidine Scrn Ur Amphetamines Screen U Methamphetamines Scrn U Benzodiazepines Scrn Urine Cocaine Screen U Marijuana (THC) Screen Ur Drug Screen Comment Ethyl Alcohol < 0.01 L Cancelled Lab Acknowledgement Test Added 09/05/22 23:06 WBC RBC Hgb Hct MCV MCH MCHC RDW Coeff of Sami Plt Count Neut % (Auto) Lymph % (Auto) [place] % (Auto) Eos % (Auto) Baso % (Auto) Neut # (Auto) Lymph # (Auto) [place] # (Auto) Eos # (Auto) Baso # (Auto) Abs Immat Gran (auto) Imm/Tot Granulo (auto) Sodium Potassium Chloride Carbon Dioxide BUN Creatinine Estimated Creat Clear Estimated GFR Glucose Calcium Magnesium Total Bilirubin Direct Bilirubin AST ALT Alkaline Phosphatase Ammonia NT-Pro-B Natriuret Pep Total Protein Albumin Lipase Urine Color [place] A Urine Appearance Clear Urine pH 6.0 Ur Specific [place] 1.025 Urine Protein 3+ A Urine Glucose (UA) Negative Urine Ketones 1+ A Urine Blood 2+ A Urine Nitrite Positive A Urine Bilirubin 3+ A Urine Urobilinogen >=8.0 A Ur Leukocyte Esterase Negative Urine RBC 5-10 A Urine WBC 0-2 Ur Squamous Epith Cells None Urine Bacteria Few A Urine Opiates Screen Negative Ur Oxycodone Screen Negative Urine Methadone Screen Negative Ur Propoxyphene Screen Negative Ur Barbiturates Screen Negative U Tricyclic Antidepress Negative Ur Phencyclidine Scrn Negative Ur Amphetamines Screen Negative U Methamphetamines Scrn Negative U Benzodiazepines Scrn POSITIVE A* Urine Cocaine Screen Negative U Marijuana (THC) Screen POSITIVE A* Ur Drug Screen Comment See Note Ethyl Alcohol Lab Acknowledgement
--- NOTE | 2022-09-06 06:08 | CRLHL7_ITS ---
For Patients: As a result of the Century Cures Act, medical imaging exams and procedure reports are released immediately into your electronic medical record. You may view this report before your referring provider. If you have questions, please contact your health care provider. INDICATION: Hypoxia TECHNIQUE: Chest 1 views. COMPARISON: September 05, 2022 IMPRESSION: Cardiovascular and mediastinum: Stable cardiomegaly. Lungs and pleural spaces: Low lung volumes. Slight increased interstitial prominence may relate to interstitial edema or low lung volumes. No focal consolidation, effusion, or pneumothorax. Bones and soft tissues: No significant findings. Dictated by Rod Dejesus MD @ 09/06/2022 7:25:20 AM (Electronically Signed)
[2022-09-06] MEDS: FUROSEMIDE 10 MG/ML inj 40 MG IVP (06:24)
[2022-09-06 07:31] LABS: HCO3 VBG 25 mmol/L (21-28); Lactate* 1.1 mmol/L (0.5-1.9)
--- NOTE | 2022-09-06 07:31 | PC.NURSE ---
When pt arrived to the floor he was able to pivot transfer from bed to BSC with assist of 2. he was A&O, pleasant and cooperative. Pt began to express further signs of ETOH withdrawal within a few hours- increased tremors, audible and visual hallucinations presented, pt was unaware of where he was & why he was in the hospital, &?very diaphoretic. Pt became minimally cooperative, pt took out IV & had removed tele. PRN Ativan given per protocol, was unable to minimize symptoms of ETOH withdrawal,?Community Engagement Representative called [facility] to update, received order for 260mg phenobarbital. ? Dilt drip was initially 10mg/hr when arrived to the floor, food writer increased drip rate to 15mg/hr at 2300. Pts HR continues to be elevated, maintaining 100-130s. Tele = AFib with RVR. ? Pt O2 sats began decreasing around 0500, NC was placed and did not keep O2 sats >88%. Oxymask was then applied at 15L, pt continued to sat in the low 80s, [facility] called and updated, received an order to use our BiPAP machine under the CPAP setting. Pt sating in the mid 90s with 85% FiO2. Also received an order for Lasix & Wayne. Wayne patent and draining orange colored urine. ?
[2022-09-06 07:41] LABS: PCO2 VBG 63 mmHG (40-50); pH VBG 7.213 (7.32-7.43)
[2022-09-06 07:45] LABS: Basophils Absolute Auto 0.04 K/uL (0.00-0.30); Basophils Percent Auto 0.5 % (0.0-3.0); Eosinophils Absolute Auto 0.06 K/uL (0.00-0.50); Eosinophils Percent Auto 0.7 % (0.0-7.0); Hematocrit 37.9 % (37.0-53.0); Hemoglobin* 11.8 gm/dL (13.5-17.5); Immature Granulocytes Abs Auto 0.08 K/uL (0.00-0.30); Immature Granulocytes Pct Auto 0.9 %; Lymphocytes Percent Auto 5.5 % (20-44); Mean Corpuscular HGB Conc 31 gm/dL (32-36); Mean Corpuscular Hemoglobin 35 pg (26-34); Mean Corpuscular Volume 113 fL (80-100); Monocytes Percent Auto 15.9 % (0.0-11.0); Neutrophils Percent Auto 76.5 % (42.0-72.0); Platelet Count* 154 K/uL (140-440); RDW Coefficient of Variation % 17.8 % (11.5-15.5); Red Blood Count 3.35 m/uL (4.30-5.90); White Blood Count* 8.75 K/uL (4.50-11.00)
[2022-09-06 07:46] LABS: Slide Review Reflex No
[2022-09-06 07:51] LABS: Albumin* 4.1 g/dL (3.3-5.0); Chloride* 103 mmol/L (96-114)
[2022-09-06 07:52] LABS: Sodium* 138 mmol/L (135-149)
[2022-09-06 07:54] LABS: Creatinine* 1.3 mg/dL (0.5-1.5); Estimated Glomerular Filt Rate 67 ml/min
[2022-09-06 07:55] LABS: Alanine Aminotransferase* 73 U/L (4-50); Alkaline Phosphatase* 263 U/L (40-150); Aspartate Amino Transferase* 140 U/L (12-35); Bilirubin Direct* 4.7 mg/dL (0.0-0.5); Bilirubin Total* 6.1 mg/dL (0.1-1.5); Blood Urea Nitrogen* 23 mg/dL (7-30); Carbon Dioxide* 26 mmol/L (20-32); Cholesterol* 294 mg/dL (90-199); Glucose* 180 mg/dL (60-115); INR 1.39 (0.91-1.10); Lipase* 733 U/L (23-300); Magnesium* 1.4 mg/dL (1.5-2.6); Prothrombin Time 17.9 Seconds; Total Protein* 7.9 g/dL (6.0-8.3); Triglycerides* 208 mg/dL (40-149)
[2022-09-06 07:56] LABS: HDL Cholesterol* 21 mg/dL (>=40); LDL Cholesterol Calculated 231 mg/dL (<100)
[2022-09-06 07:57] LABS: C Reactive Protein* 1.4 mg/dL (0.5-1.0)
[2022-09-06] MEDS: PROPOFOL 10 MG/ML INJ 100 MG IVP (07:58)
[2022-09-06] MEDS: SUCCINYLCHOLINE 20 MG/ML INJ 80 MG IVP (07:58)
[2022-09-06] MEDS: PHENYLEPHRINE 100 MCG/ML SYRINGE 300 MCG IVP ×2 (07:58→08:18)
[2022-09-06] MEDS: propofoL 1,000 MG/100 ML ML 40.29 MG IVPB (08:01)
[2022-09-06 08:06] LABS: Troponin I* 0.01 ng/mL (0.01-0.04)
[2022-09-06] MEDS: MIDAZOLAM HCL 1 MG/ML inj 2 MG IVP (08:10)
[2022-09-06] MEDS: fentaNYL 100 MCG/2 ML inj IVP (08:10)
--- NOTE | 2022-09-06 08:12 | CRLHL7_ITS ---
For Patients: As a result of the Century Cures Act, medical imaging exams and procedure reports are released immediately into your electronic medical record. You may view this report before your referring provider. If you have questions, please contact your health care provider. Indication: Intubation Technique: Chest 1 view Comparison: Chest x-ray 09/06/2022 at 06:19 Findings/Impression: Cardiovascular and mediastinum: Interval placement of an endotracheal tube with tip at the distal trachea. Enteric tube extends to the body of the stomach. Moderate globular cardiomegaly with mild mediastinal prominence, similar to prior. Lungs and pleural space: Pulmonary cephalization with some reticular interstitial prominence, likely pulmonary edema. Low lung volumes. No pneumothorax or pleural effusion. Bones and soft tissues: No acute findings. Dictated by Lakhwinder Sierra MD @ 09/06/2022 9:18:56 AM (Electronically Signed)
[2022-09-06 08:13] LABS: NT Pro B Type NatriureticPept* 1870 pg/mL
[2022-09-06] MEDS: PHENYLEPHRINE 100 MCG/ML SYRINGE 200 MCG IVP (08:15)
[2022-09-06] MEDS: ePHEDrine sulfate 5 MG/ML inj 10 MG IVP (08:18)
--- NOTE | 2022-09-06 08:45 | REH.OT ---
Orders received, OT/PT eval Cx due to planned transfer with decline in status.
--- NOTE | 2022-09-06 08:48 | NUTR.NU ---
RDN with MD consult for alcoholism. Consult cancelled due to planned transfer with decline in status. RDN will continue to follow PRN.
--- NOTE | 2022-09-06 09:23 | W.ANESCHARGE ---
Anesthesia Charges Start Date/Time Anesthesia Start Date: 09/06/22 Anesthesia Start Time: 07:35 Stop Date/Time Anesthesia Stop Date: 09/06/22 Anesthesia Stop Time: 08:05 Summary Emergency: PEDIATRIC PHYSICIAN ASSISTANT
--- NOTE | 2022-09-06 09:24 | PM.ANBPRC ---
[facility] Medical History (Updated 09/05/22 @ 21:54 by Adan Mariscal MD) Obesity ?E66.9 - Obesity, unspecified (ICD-10) Chronic alcoholism ?F10.20 - Alcohol dependence, uncomplicated (ICD-10) Pulmonary edema (12/04/20) ?J81.1 - Chronic pulmonary edema (ICD-10) Pneumonia (12/04/20) ?J18.9 - Pneumonia, unspecified organism (ICD-10) Low magnesium level ?R79.0 - Abnormal level of blood mineral (ICD-10) Iron deficiency ?E61.1 - Iron deficiency (ICD-10) Hypertension ?I10 - Essential (primary) hypertension (ICD-10) Generalized anxiety disorder ?F41.1 - Generalized anxiety disorder (ICD-10) Coagulation disorder ?D68.9 - Coagulation defect, unspecified (ICD-10) Asthma ?J45.909 - Unspecified asthma, uncomplicated (ICD-10) Anemia due to acute blood loss ?D62 - Acute posthemorrhagic anemia (ICD-10) Alcoholism ?F10.20 - Alcohol dependence, uncomplicated (ICD-10) GERD (gastroesophageal reflux disease) ?K21.9 - Gastro-esophageal reflux disease without esophagitis (ICD-10) Social History Narrative: alcohol abuse What is your current living situation?: I presently have a place to live Problems where you live: unable to answer Problems where you live details: [place] In the past 12 months, utilities in danger of being shut off: unable to answer In the past 12 mos, have been you worried that your food would run out before you had money to buy more?: unable to answer In the past 12 mos, the food you bought just didn't last and you didn't have money to buy more?: unable to answer Highest level of school completed/degree received: some college, no degree Smoking Status: Never smoker How often do you have a drink containing alcohol: 4 or more times a week Alcohol type: beer and hard liquor Alcohol type details: 1L Tequila/day Mixes with cranberry juice How many standard drinks containing alcohol do you have on a typical day: 10 or more How often do you have six or more drinks on one occasion: Daily or almost daily AUDIT-C Alcohol total score: 12 Non-prescribed substance use: marijuana (any form) How often does anyone, including family, friends and others, physically hurt you: unable to answer How often does anyone, including family, friends and others, insult or talk down to you: unable to answer How often does anyone, including family, friends and others, threaten you with harm: unable to answer How often does anyone, including family, friends and others, scream or curse at you: unable to answer service: No Meds Home Medications and Allergies Allergies Allergy/AdvReac Type Severity Reaction Status Date / Time tree nut Allergy Severe Anaphylaxis Verified 08/23/21 12:13 ondansetron Allergy Unknown Hives Verified 08/23/21 12:13 Results Labs Labs: Laboratory Results - last 24 hr 09/05/22 09/05/22 09/05/22 07:09 18:35 18:35 WBC 8.75 7.60 RBC 3.35 L 3.48 L Hgb 11.8 L 12.2 L Hct 37.9 37.7 MCV 113 H 108 H MCH 35 H 35 H MCHC 31 L 32 RDW Coeff of Sami 17.8 H 17.8 H Plt Count 154 137 L Neut % (Auto) 76.5 H 75.4 H Lymph % (Auto) 5.5 L 7.2 L [place] % (Auto) 15.9 H 15.8 H Eos % (Auto) 0.7 0.4 Baso % (Auto) 0.5 0.7 Neut # (Auto) 6.70 5.70 Lymph # (Auto) 0.50 L 0.50 L [place] # (Auto) 1.40 H 1.20 H Eos # (Auto) 0.06 0.03 Baso # (Auto) 0.04 0.05 Abs Immat Gran (auto) 0.08 0.04 Imm/Tot Granulo (auto) 0.9 0.5 INR VBG pH VBG pCO2 VBG pO2 VBG HCO3 Sodium 139 Potassium 4.0 Chloride 103 Carbon Dioxide 23 BUN 17 Creatinine 0.9 Estimated Creat Clear 104.58 Estimated GFR 104 Glucose 155 H Lactate Calcium 8.4 Phosphorus Magnesium 1.3 L Total Bilirubin 5.3 H Direct Bilirubin 3.6 H AST 145 H ALT 69 H Alkaline Phosphatase 286 H Ammonia 109.0 H Troponin I C-Reactive Protein NT-Pro-B Natriuret Pep 1790 Total Protein 7.7 Albumin 4.0 Triglycerides Cholesterol LDL Cholesterol, Calc HDL Cholesterol Lipase 924 H TSH Urine Color Urine Appearance Urine pH Ur Specific [place] Urine Protein Urine Glucose (UA) Urine Ketones Urine Blood Urine Nitrite Urine Bilirubin Urine Urobilinogen Ur Leukocyte Esterase Urine RBC Urine WBC Ur Squamous Epith Cells Urine Bacteria Urine Opiates Screen Ur Oxycodone Screen Urine Methadone Screen Ur Propoxyphene Screen Ur Barbiturates Screen U Tricyclic Antidepress Ur Phencyclidine Scrn Ur Amphetamines Screen U Methamphetamines Scrn U Benzodiazepines Scrn Urine Cocaine Screen U Marijuana (THC) Screen Ur Drug Screen Comment Ethyl Alcohol < 0.01 L Cancelled Lab Acknowledgement 09/05/22 09/05/22 09/06/22 21:50 23:06 07:09 WBC RBC Hgb Hct MCV MCH MCHC RDW Coeff of Sami Plt Count Neut % (Auto) Lymph % (Auto) [place] % (Auto) Eos % (Auto) Baso % (Auto) Neut # (Auto) Lymph # (Auto) [place] # (Auto) Eos # (Auto) Baso # (Auto) Abs Immat Gran (auto) Imm/Tot Granulo (auto) INR 1.39 H VBG pH 7.213 L* VBG pCO2 63 H* VBG pO2 105.0 H VBG HCO3 25 Sodium 138 Potassium 5.0 Chloride 103 Carbon Dioxide 26 BUN 23 Creatinine 1.3 Estimated Creat Clear 72.40 Estimated GFR 67 Glucose 180 H Lactate 1.1 Calcium 8.0 L Phosphorus 5.0 H Magnesium 1.4 L Total Bilirubin 6.1 H Direct Bilirubin 4.7 H AST 140 H ALT 73 H Alkaline Phosphatase 263 H Ammonia Troponin I 0.01 C-Reactive Protein 1.4 H NT-Pro-B Natriuret Pep 1870 Total Protein 7.9 Albumin 4.1 Triglycerides 208 H Cholesterol 294 H LDL Cholesterol, Calc 231 H HDL Cholesterol 21 L Lipase 733 H TSH 6.280 H Urine Color [place] A Urine Appearance Clear Urine pH 6.0 Ur Specific [place] 1.025 Urine Protein 3+ A Urine Glucose (UA) Negative Urine Ketones 1+ A Urine Blood 2+ A Urine Nitrite Positive A Urine Bilirubin 3+ A Urine Urobilinogen >=8.0 A Ur Leukocyte Esterase Negative Urine RBC 5-10 A Urine WBC 0-2 Ur Squamous Epith Cells None Urine Bacteria Few A Urine Opiates Screen Negative Ur Oxycodone Screen Negative Urine Methadone Screen Negative Ur Propoxyphene Screen Negative Ur Barbiturates Screen Negative U Tricyclic Antidepress Negative Ur Phencyclidine Scrn Negative Ur Amphetamines Screen Negative U Methamphetamines Scrn Negative U Benzodiazepines Scrn POSITIVE A* Urine Cocaine Screen Negative U Marijuana (THC) Screen POSITIVE A* Ur Drug Screen Comment See Note Ethyl Alcohol Lab Acknowledgement Test Added Vital Signs Vital Signs: Last Vital Signs Temp 98.2 F 09/06/22 02:15 Pulse 111 H 09/06/22 07:00 Resp 20 09/06/22 09:15 BP 137/109 H 09/06/22 06:00 Pulse Ox 95 09/06/22 06:00 O2 Del Method CPAP 09/06/22 06:00 O2 Flow Rate 15 09/06/22 05:30 FiO2 100 09/06/22 09:15 Weight: 134.309 kg Height: 180.34 cm Anesthesia Procedures Airway Patient Location: [facility]/CCU Urgency: emergent Date: 09/06/22 Time: 07:35 Anesthesiologist: Juan Luis PEDIATRIC LICENSED PRACTICAL NURSE: Puneet Preferred by: anesthesiologist and PEDIATRIC LICENSED PRACTICAL NURSE Preanesthetic Checklist: IV checked and monitors and equipment checked Difficult Airway: No Indications for Airway Management: airway protection, respiratory distress and cardiovascular instability Spontaneous Ventilation: present Preoxygenated: Yes Patient Position: ramp Mask Difficulty Assessment: 0 - not attempted Final Airway Type: endotracheal airway Number of Attempts at Approach: 1 Dentition Unchanged: Yes
--- NOTE | 2022-09-06 10:41 | PC.NURSE ---
RSI & Critical Care Record:? 0750: BP 103/64, HR 93, RR 24, O2 Sat 96% CPAP? 0755: BP 97/70, HR 111, RR 22, O2 Sat 93% CPAP? 0757: BP 98/67, HR 101? 0758: Phenylephrine 300mg IV, Propofol 100mg IV, Succinylcholine 80mg IV? 0800: BP 104/80, HR 122? 0800: Intubation performed by AUTOMATIC VULCANIZING OPERATOR, tube 26cm at the teeth; Vent per RT? 0801: Propofol drip initiated at 50mcg/kg/min? 0802: BP 105/72, HR 114, O2 Sat 93%, ET CO2 51? 0804: BP 94/66, HR 105, O2 Sat 92%, ET CO2 48? 0807: Diltiazem drip decreased to 10ml/hr? 0808: BP 102/80, HR 109, O2 Sat 92%, ET CO2 51? 0808: Propofol drip increased to 70mcg/kg/min? 0810: Versed 2mg IV, Fentanyl 100mcg IV? 0810: BP 82/56, HR 97, O2 Sat 93%, ET CO2 46? 0811: NG Tube inserted, L. nare, 60cm? 0812: BP 56/33, HR 110, O2 Sat 94%, ET CO2 43? 0812: Propofol drip decreased to 50mcg/kg/min? 0815: BP 39/21, HR 97, O2 Sat 94%, ET CO2 51; Trendelenberg; Phenylephrine 200mg IV ? 0816: Diltiazem drip DC?d? 0818: Norepinephrine drip initiated at 0.1mcg/kg/min; Propofol drip stopped; Ephedrine 10mg IV: Phenylephrine 300mg IV? 0818: BP 57/28, HR 101, O2 Sat 95%, ET CO2 46? 0819: BP 115/90, HR 105, O2 Sat 93%, ET CO2 48? 0822: Propofol drip restarted at 50mcg/kg/min? 08: BP 115/84, HR 98, O2 Sat 92%? 0823: Ketamine administered per [facility]? 0824: BP 118/90, HR 117, O2 Sat 92%, ET CO2 54? 0826: BP 123/88, HR 117? 08: Norepinephrine drip decreased to 0.05mcg/kg/min? 0829: Portable CXR obtained, ET tube pulled back 2cm? 0830: Portable CXR repeated? 0830: BP 114/64, HR 97, O2 Sat 94%? 0832: BP 120/81, HR 98, O2 Sat 94%? 0834: BP 106/79, HR 99, O2 Sat 94%? 0834: [facility] assumed care of patient?
--- NOTE | 2022-09-06 11:26 | PC.NURSE ---
0730: at bedside to assess patient, patient on CPAP at 85% FiO2 with sats mid 90s, HR 100-120 afib, diltiazem drip to right hand iv, saline locked iv to left forearm, patient slightly opening eyes to name and shaking, lung sounds diminished, white patent with minimal orange urine returning. 0740: MD to beside to assess patient, decision made to move towards intubation, see note from Kamini HIGGINS.
--- NOTE | 2022-09-06 11:31 | PC.NURSE ---
patient left via [facility] at 0915.
--- NOTE | 2022-09-06 15:41 | P.IMPN_ITS ---
Progress Note: A&P Assessment and plan (1) Alcohol withdrawal syndrome: Problem details: Became critically ill overnight. Emergently intubated and sedated and transferred to tertiary care for ICU management. Status: Acute (2) Acute hypercapnic respiratory failure: Problem details: Urgently intubated with an 8 0 ETT tube, and placed on ventilator CMV+ mode with 500 mL tidal volume, 10 mmHg PEEP, FiO2 100%, respiratory rate set at 20. The secondary to acute alcohol withdrawal, sedation, STEPHANIE Status: Acute (3) Alcoholic liver disease: Problem details: Notable elevations in his LFTs and bilirubin, abdominal ascites consistent with acute on chronic alcoholic liver disease Status: Acute (4) Atrial fibrillation with rapid ventricular response: Problem details: For rate control throughout the night. Once intubated, heart rate did come down. AFib remained the dominant rhythm at transfer. Status: Acute (5) Chronic alcoholism: Problem details: Noted, root cause Status: Acute (6) Obesity: Problem details: BMI 41 Status: Acute Subjective Date Seen: 09/06/22 Interval history: Daily Progress Note - Hospital Medicine Day #: 1 CC: Alcohol withdrawal, acute respiratory failure OVERNIGHT UPDATES FROM STAFF & MED, LAB, IMAGING UPDATES Patient was admitted last evening, 09/05/2022, for concerns regarding alcohol withdrawal. Initially he was cooperative and calm. Over the last 8-10 hours his agitation, confusion and overall clinical status is deteriorated. As I arrived for rounds this morning at 7:00 a.m., he had been placed on CPAP, had tachycardia with AFib RVR on a diltiazem drip, and had received phenobarbital and Ativan for his agitation. Morning labs have been drawn and were not yet back. Morning EKG showed possible STEMI with AFib RVR. I went directly to the bedside. I found Rachid to be obtunded but spontaneously breathing and perfusing but with cool extremities. He had CPAP mask on that had a significant leak and saliva pooling. He was unable to open his eyes to command. He would not squeeze my hand. I reviewed his vitals do show that he was satting 95% on CPAP 10 L 85% FiO2. Pulse was in the 120s and irregular. His respiratory rate was in the high 20s and was shallow. I asked for a repeat ECG and for lab to prioritize processing. I instructed my team to prepare for likely intubation given his clinical deterioration with obtundation and possibly for protection of his airway. I asked for anesthesia to be called to the room as well as respiratory therapy, pharmacy and electrician powerhouse. His pH was reported at 7.2 with a pH in the 60s. His heart rate was still greater than 120. Asked our anesthesia team to proceed with intubation. RSI was approximately complete at 0800 without complication. Initially phenylephrine 300 mg IV, propofol 100 mg IV and succinylcholine 80 mg IV were administered. 8.0 ETT was placed at 26cm. Placed on CMV+ with 500TV, 10PEEP, FiO2 at 100%. Confirmation xray was ordered. NG tube placed. End-tidal CO2 was confirmed as well as good waveform and bilateral breath sounds for confirmation of acceptable ETT placement. Propofol drip was then initiated at 50 micrograms/kilogram per minute. We noted some mild hypotension with systolics hovering right about 100 thus the diltiazem drip was decreased to 10 mL an hour. The patient began bucking and the propofol drip was increased to 70 mics per kg per minute. Versed and then fentanyl were also needed for increased sedation. His blood pressure was dropping and we read the low blood pressure avg 39/21 and 56/33 in the 15 minutes after intubation. He was placed in Trendelenburg and given more phenylephrine. The diltiazem drip was DC. We initiated a norepinephrine drip, held propofol, gave ephedrine and phenylephrine once again. Blood pressure increased to 57/28 than 115/90. Became restless and his propofol drip was restarted. Ketamine was also administered. The [facility] air transport team was on the scene at approximately 8:20 a.m.. They assisted us in managing his sedation while he had evidence of hypoperfusion and increased pressures for intubation. They assumed care and left the floor with our patient in stable condition at approximately 9:10 a.m. Objective: obtunded. jo colored, cool extremities. Vitals: per the record, tachy with AFIB/RVR. hypotensive briefly after intubation. no fever. see above Lungs: shallow effort; no wheezing. Cardiac: no murmurs; irregular Abdomen: distended. tense. edema 2+ to the lower extremities. Disposition/Potential discharge - Transferred to medical ICU @ [facility] Critical Care Time 120 minutes (entire time either at bedside or immediately present and on the phone with accepting physician) 7:10 am thru 9:10 am. The patient required my highest level preparedness to intervene emergently and I personally spent this critical care time directly and personally managing the patient. This critical care time included: Obtaining a history; Examining the patient; Pulse oximetry; Ordering and reviewing of studies; Arranging urgent treatment with development of a management plan; Evaluation of patients response to treatment; Frequent reassessment discussions with other providers. This critical care time was performed to assess and manage the high probability of imminent life-threatening deterioration that could result in multiorgan failure. It was exclusive of separate billable procedures and treating other patients and teaching time. Exam Const: Vital Signs, click to edit/add: Vital Signs - 24 hr 09/05/22 18:10 09/05/22 18:23 09/05/22 18:30 Temperature 99.0 F Pulse Rate 121 H 128 H Pulse Rate [Pulse Oximeter] Pulse Rate [Right Pulse Oximeter] 117 H Respiratory Rate 22 Blood Pressure Blood Pressure [Le ft Arm] Blood Pressure [Ri ght Upper Arm] 146/110 H Pulse Oximetry 95 95 96 Oxygen Delivery Me thod Room Air Oxygen Flow Rate Fraction of Inspir ed Oxygen 09/05/22 18:35 09/05/22 18:45 09/05/22 18:47 Temperature Pulse Rate 120 H 159 H 108 H Pulse Rate [Pulse Oximeter] Pulse Rate [Right Pulse Oximeter] Respiratory Rate Blood Pressure 102/68 Blood Pressure [Le ft Arm] Blood Pressure [Ri ght Upper Arm] Pulse Oximetry 96 93 83 L Oxygen Delivery Me thod Oxygen Flow Rate Fraction of Inspir ed Oxygen 09/05/22 19:00 09/05/22 19:02 09/05/22 19:15 Temperature Pulse Rate 154 H 151 H 159 H Pulse Rate [Pulse Oximeter] Pulse Rate [Right Pulse Oximeter] Respiratory Rate Blood Pressure 166/129 H Blood Pressure [Le ft Arm] Blood Pressure [Ri ght Upper Arm] Pulse Oximetry 97 98 98 Oxygen Delivery Me thod Oxygen Flow Rate Fraction of Inspir ed Oxygen 09/05/22 19:18 09/05/22 19:21 09/05/22 19:31 Temperature Pulse Rate 163 H 130 H Pulse Rate [Pulse Oximeter] Pulse Rate [Right Pulse Oximeter] Respiratory Rate Blood Pressure 127/78 Blood Pressure [Le ft Arm] Blood Pressure [Ri ght Upper Arm] Pulse Oximetry 98 89 Oxygen Delivery Me thod Oxygen Flow Rate Fraction of Inspir ed Oxygen 09/05/22 19:33 09/05/22 19:39 09/05/22 19:44 Temperature Pulse Rate 128 H 155 H 116 H Pulse Rate [Pulse Oximeter] Pulse Rate [Right Pulse Oximeter] Respiratory Rate Blood Pressure 135/101 H 131/97 H 143/86 H Blood Pressure [Le ft Arm] Blood Pressure [Ri ght Upper Arm] Pulse Oximetry 87 L 95 95 Oxygen Delivery Me thod Oxygen Flow Rate Fraction of Inspir ed Oxygen 09/05/22 19:45 09/05/22 19:48 09/05/22 20:00 Temperature Pulse Rate 116 H 115 H 128 H Pulse Rate [Pulse Oximeter] Pulse Rate [Right Pulse Oximeter] Respiratory Rate Blood Pressure 174/105 H Blood Pressure [Le ft Arm] Blood Pressure [Ri ght Upper Arm] Pulse Oximetry 97 97 96 Oxygen Delivery Me thod Oxygen Flow Rate Fraction of Inspir ed Oxygen 09/05/22 20:02 09/05/22 20:18 09/05/22 20:19 Temperature Pulse Rate 107 H 143 H 135 H Pulse Rate [Pulse Oximeter] Pulse Rate [Right Pulse Oximeter] Respiratory Rate Blood Pressure 124/108 H 130/102 H Blood Pressure [Le ft Arm] Blood Pressure [Ri ght Upper Arm] Pulse Oximetry 95 97 96 Oxygen Delivery Me thod Oxygen Flow Rate Fraction of Inspir ed Oxygen 09/05/22 20:20 09/05/22 20:26 09/05/22 20:30 Temperature 97.6 F Pulse Rate 139 H 126 H Pulse Rate [Pulse Oximeter] Pulse Rate [Right Pulse Oximeter] Respiratory Rate Blood Pressure Blood Pressure [Le ft Arm] Blood Pressure [Ri ght Upper Arm] Pulse Oximetry 95 95 Oxygen Delivery Me thod Oxygen Flow Rate Fraction of Inspir ed Oxygen 09/05/22 20:32 09/05/22 20:45 09/05/22 20:47 Temperature Pulse Rate 123 H 133 H 147 H Pulse Rate [Pulse Oximeter] Pulse Rate [Right Pulse Oximeter] Respiratory Rate Blood Pressure 110/73 127/102 H Blood Pressure [Le ft Arm] Blood Pressure [Ri ght Upper Arm] Pulse Oximetry 94 95 95 Oxygen Delivery Me thod Oxygen Flow Rate Fraction of Inspir ed Oxygen 09/05/22 21:20 09/05/22 21:20 09/05/22 21:20 Temperature 98.4 F 98.4 F Pulse Rate Pulse Rate [Pulse Oximeter] 134 H 134 H Pulse Rate [Right Pulse Oximeter] Respiratory Rate 28 H 28 H 28 H Blood Pressure Blood Pressure [Le ft Arm] 138/112 H 138/112 H Blood Pressure [Ri ght Upper Arm] Pulse Oximetry 96 96 96 Oxygen Delivery Me thod Room Air Room Air Room Air Oxygen Flow Rate Fraction of Inspir ed Oxygen 09/05/22 21:21 09/05/22 22:10 09/05/22 22:30 Temperature Pulse Rate 138 H Pulse Rate [Pulse Oximeter] 122 H 131 H Pulse Rate [Right Pulse Oximeter] Respiratory Rate 28 H 28 H Blood Pressure Blood Pressure [Le ft Arm] 124/85 160/146 H Blood Pressure [Ri ght Upper Arm] Pulse Oximetry 94 96 Oxygen Delivery Me thod Room Air Room Air Oxygen Flow Rate Fraction of Inspir ed Oxygen 09/05/22 22:40 09/05/22 22:45 09/05/22 23:00 Temperature Pulse Rate Pulse Rate [Pulse Oximeter] 118 H 119 H Pulse Rate [Right Pulse Oximeter] Respiratory Rate 28 H 30 H Blood Pressure Blood Pressure [Le ft Arm] 98/68 144/101 H Blood Pressure [Ri ght Upper Arm] Pulse Oximetry 96 Oxygen Delivery Me thod Room Air Oxygen Flow Rate Fraction of Inspir ed Oxygen 09/05/22 23:00 09/05/22 23:15 09/05/22 23:30 Temperature Pulse Rate Pulse Rate [Pulse Oximeter] 136 H 131 H Pulse Rate [Right Pulse Oximeter] Respiratory Rate 30 H 30 H Blood Pressure Blood Pressure [Le ft Arm] 119/89 Blood Pressure [Ri ght Upper Arm] Pulse Oximetry 94 93 94 Oxygen Delivery Me thod Room Air Room Air Room Air Oxygen Flow Rate Fraction of Inspir ed Oxygen 09/05/22 23:45 09/06/22 00:00 09/06/22 00:15 Temperature Pulse Rate Pulse Rate [Pulse Oximeter] 129 H 116 H 118 H Pulse Rate [Right Pulse Oximeter] Respiratory Rate 28 H 28 H 28 H Blood Pressure Blood Pressure [Le ft Arm] 119/103 H 130/108 H 93/66 Blood Pressure [Ri ght Upper Arm] Pulse Oximetry 92 91 93 Oxygen Delivery Me thod Room Air Room Air Room Air Oxygen Flow Rate Fraction of Inspir ed Oxygen 09/06/22 00:19 09/06/22 00:30 09/06/22 00:45 Temperature 98.4 F Pulse Rate Pulse Rate [Pulse Oximeter] 118 H 128 H 113 H Pulse Rate [Right Pulse Oximeter] Respiratory Rate 28 H 28 H 28 H Blood Pressure Blood Pressure [Le ft Arm] 93/66 100/88 117/95 H Blood Pressure [Ri ght Upper Arm] Pulse Oximetry 93 92 91 Oxygen Delivery Me thod Room Air Room Air Room Air Oxygen Flow Rate Fraction of Inspir ed Oxygen 09/06/22 01:00 09/06/22 01:00 09/06/22 01:15 Temperature 98.2 F 98.2 F Pulse Rate Pulse Rate [Pulse Oximeter] 122 H 122 H 124 H Pulse Rate [Right Pulse Oximeter] Respiratory Rate 26 H 26 H 26 H Blood Pressure Blood Pressure [Le ft Arm] 128/81 128/81 110/81 Blood Pressure [Ri ght Upper Arm] Pulse Oximetry 92 92 93 Oxygen Delivery Me thod Room Air Room Air Room Air Oxygen Flow Rate Fraction of Inspir ed Oxygen 09/06/22 01:30 09/06/22 02:00 09/06/22 02:15 Temperature 98.2 F Pulse Rate Pulse Rate [Pulse Oximeter] 133 H 122 H 131 H Pulse Rate [Right Pulse Oximeter] Respiratory Rate 26 H 26 H 30 H Blood Pressure Blood Pressure [Le ft Arm] 117/85 123/79 121/63 Blood Pressure [Ri ght Upper Arm] Pulse Oximetry 92 94 92 Oxygen Delivery Me thod Room Air Room Air Room Air Oxygen Flow Rate Fraction of Inspir ed Oxygen 09/06/22 02:30 09/06/22 02:45 09/06/22 03:11 Temperature Pulse Rate Pulse Rate [Pulse Oximeter] 120 H 129 H 123 H Pulse Rate [Right Pulse Oximeter] Respiratory Rate 28 H 30 H 28 H Blood Pressure Blood Pressure [Le ft Arm] 137/85 127/100 H 103/83 Blood Pressure [Ri ght Upper Arm] Pulse Oximetry 92 90 93 Oxygen Delivery Me thod Room Air Room Air Room Air Oxygen Flow Rate Fraction of Inspir ed Oxygen 09/06/22 04:30 09/06/22 05:00 09/06/22 05:30 Temperature Pulse Rate Pulse Rate [Pulse Oximeter] 136 H 136 H 129 H Pulse Rate [Right Pulse Oximeter] Respiratory Rate 30 H 30 H 30 H Blood Pressure Blood Pressure [Le ft Arm] 131/77 195/142 H 140/89 H Blood Pressure [Ri ght Upper Arm] Pulse Oximetry 88 88 82 L Oxygen Delivery Me thod Room Air Nasal Cannula OxyMask Oxygen Flow Rate 2 15 Fraction of Inspir ed Oxygen 09/06/22 06:00 09/06/22 07:00 09/06/22 07:30 Temperature 97.5 F L Pulse Rate 111 H Pulse Rate [Pulse Oximeter] 126 H 110 H Pulse Rate [Right Pulse Oximeter] Respiratory Rate 30 H 23 Blood Pressure Blood Pressure [Le ft Arm] 137/109 H 108/69 Blood Pressure [Ri ght Upper Arm] Pulse Oximetry 95 95 Oxygen Delivery Me thod CPAP CPAP Oxygen Flow Rate 15 Fraction of Inspir ed Oxygen 85 85 09/06/22 07:30 09/06/22 07:30 09/06/22 09:15 Temperature Pulse Rate Pulse Rate [Pulse Oximeter] 110 H Pulse Rate [Right Pulse Oximeter] Respiratory Rate 23 23 Blood Pressure Blood Pressure [Le ft Arm] Blood Pressure [Ri ght Upper Arm] Pulse Oximetry 95 Oxygen Delivery Me thod CPAP Oxygen Flow Rate 15 Fraction of Inspir ed Oxygen 85 100 09/06/22 09:15 Temperature Pulse Rate Pulse Rate [Pulse Oximeter] Pulse Rate [Right Pulse Oximeter] Respiratory Rate 20 Blood Pressure Blood Pressure [Le ft Arm] Blood Pressure [Ri ght Upper Arm] Pulse Oximetry Oxygen Delivery Me thod Oxygen Flow Rate Fraction of Inspir ed Oxygen Labs Labs: Laboratory Results - last 24 hr 09/05/22 09/05/22 09/05/22 07:09 18:35 18:35 WBC 8.75 7.60 RBC 3.35 L 3.48 L Hgb 11.8 L 12.2 L Hct 37.9 37.7 MCV 113 H 108 H MCH 35 H 35 H MCHC 31 L 32 RDW Coeff of Sami 17.8 H 17.8 H Plt Count 154 137 L Neut % (Auto) 76.5 H 75.4 H Lymph % (Auto) 5.5 L 7.2 L [place] % (Auto) 15.9 H 15.8 H Eos % (Auto) 0.7 0.4 Baso % (Auto) 0.5 0.7 Neut # (Auto) 6.70 5.70 Lymph # (Auto) 0.50 L 0.50 L [place] # (Auto) 1.40 H 1.20 H Eos # (Auto) 0.06 0.03 Baso # (Auto) 0.04 0.05 Abs Immat Gran (auto) 0.08 0.04 Imm/Tot Granulo (auto) 0.9 0.5 INR VBG pH VBG pCO2 VBG pO2 VBG HCO3 Sodium 139 Potassium 4.0 Chloride 103 Carbon Dioxide 23 BUN 17 Creatinine 0.9 Estimated Creat Clear 104.58 Estimated GFR 104 Glucose 155 H Lactate Calcium 8.4 Phosphorus Magnesium 1.3 L Total Bilirubin 5.3 H Direct Bilirubin 3.6 H AST 145 H ALT 69 H Alkaline Phosphatase 286 H Ammonia 109.0 H Troponin I C-Reactive Protein NT-Pro-B Natriuret Pep 1790 Total Protein 7.7 Albumin 4.0 Triglycerides Cholesterol LDL Cholesterol, Calc HDL Cholesterol Lipase 924 H TSH Urine Color Urine Appearance Urine pH Ur Specific Sebastian Urine Protein Urine Glucose (UA) Urine Ketones Urine Blood Urine Nitrite Urine Bilirubin Urine Urobilinogen Ur Leukocyte Esterase Urine RBC Urine WBC Ur Squamous Epith Cells Urine Bacteria Urine Opiates Screen Ur Oxycodone Screen Urine Methadone Screen Ur Propoxyphene Screen Ur Barbiturates Screen U Tricyclic Antidepress Ur Phencyclidine Scrn Ur Amphetamines Screen U Methamphetamines Scrn U Benzodiazepines Scrn Urine Cocaine Screen U Marijuana (THC) Screen Ur Drug Screen Comment Ethyl Alcohol < 0.01 L Cancelled Lab Acknowledgement 09/05/22 09/05/22 09/06/22 21:50 23:06 07:09 WBC RBC Hgb Hct MCV MCH MCHC RDW Coeff of Sami Plt Count Neut % (Auto) Lymph % (Auto) [place] % (Auto) Eos % (Auto) Baso % (Auto) Neut # (Auto) Lymph # (Auto) [place] # (Auto) Eos # (Auto) Baso # (Auto) Abs Immat Gran (auto) Imm/Tot Granulo (auto) INR 1.39 H VBG pH 7.213 L* VBG pCO2 63 H* VBG pO2 105.0 H VBG HCO3 25 Sodium 138 Potassium 5.0 Chloride 103 Carbon Dioxide 26 BUN 23 Creatinine 1.3 Estimated Creat Clear 72.40 Estimated GFR 67 Glucose 180 H Lactate 1.1 Calcium 8.0 L Phosphorus 5.0 H Magnesium 1.4 L Total Bilirubin 6.1 H Direct Bilirubin 4.7 H AST 140 H ALT 73 H Alkaline Phosphatase 263 H Ammonia Troponin I 0.01 C-Reactive Protein 1.4 H NT-Pro-B Natriuret Pep 1870 Total Protein 7.9 Albumin 4.1 Triglycerides 208 H Cholesterol 294 H LDL Cholesterol, Calc 231 H HDL Cholesterol 21 L Lipase 733 H TSH 6.280 H Urine Color [place] A Urine Appearance Clear Urine pH 6.0 Ur Specific Sebastian 1.025 Urine Protein 3+ A Urine Glucose (UA) Negative Urine Ketones 1+ A Urine Blood 2+ A Urine Nitrite Positive A Urine Bilirubin 3+ A Urine Urobilinogen >=8.0 A Ur Leukocyte Esterase Negative Urine RBC 5-10 A Urine WBC 0-2 Ur Squamous Epith Cells None Urine Bacteria Few A Urine Opiates Screen Negative Ur Oxycodone Screen Negative Urine Methadone Screen Negative Ur Propoxyphene Screen Negative Ur Barbiturates Screen Negative U Tricyclic Antidepress Negative Ur Phencyclidine Scrn Negative Ur Amphetamines Screen Negative U Methamphetamines Scrn Negative U Benzodiazepines Scrn POSITIVE A* Urine Cocaine Screen Negative U Marijuana (THC) Screen POSITIVE A* Ur Drug Screen Comment See Note Ethyl Alcohol Lab Acknowledgement Test Added
== END 2022-09-06 09:15 | disposition short-term general hospital (02) | DRG 896 ==
LOC: ED 19:58 → MEDSURG 21:03
PROVIDERS: Admitting Provider Internal Medicine; Emergency Provider Student in an Organized Health Care Education/Training Program; PCP Family Medicine; Visit Provider Internal Medicine
DX: F10.239 Alcohol dependence with withdrawal, unspecified (principal); J96.02 Acute respiratory failure with hypercapnia; Z68.41 Body mass index [BMI] 40.0-44.9, adult; J81.1 Chronic pulmonary edema; R45.1 Restlessness and agitation; I95.89 Other hypotension; K70.11 Alcoholic hepatitis with ascites; R00.0 Tachycardia, unspecified; I48.91 Unspecified atrial fibrillation; G47.33 Obstructive sleep apnea (adult) (pediatric); D64.9 Anemia, unspecified; K21.9 Gastro-esophageal reflux disease without esophagitis; E66.9 Obesity, unspecified; J45.909 Unspecified asthma, uncomplicated; I10 Essential (primary) hypertension; F32.A Depression, unspecified
CPT/HCPCS: 31500; 36415; 51701; 71045; 74176; 80053; 80061; 80306; 81001; 82077; 82140; 82248; 82803; 83605; 83690; 83735; 83880; 84100; 84443; 84484; 85025; 85610; 86140; 87040; 87086; 87186; 93005; 94660; 94761; 99140; 99283; 99291; A9270; J0330; J1650; J1940; J2060; J2250; J2371; J2560; J2704; J3010; J3360; J3490; J7030